=== PATIENT | female | born 1945 | race American Indian/Alaskan Native ===

== ENCOUNTER 2021-03-07 09:18 | Emergency (ER) | payer OTHER, BC ==
--- NOTE | 2021-03-07 10:33 | EDM.PDOC ---
ED HPI GENERAL MEDICAL PROBLEM - General Chief Complaint: Lower Extremity Injury/Pain Stated Complaint: PAIN IN L LEG Time Seen by Provider: 03/07/21 10:15 Source of Information: Reports: Patient, Old Records, RN History Limitations: Reports: No Limitations - History of Present Illness INITIAL COMMENTS - FREE TEXT/NARRATIVE: 75 yo female presents with intermittent pain to the back of her L calf today. No SOB or pleuritic pain. Has a pHx of PE. Onset: Today Onset Date: 03/07/21 Duration: Hour(s):, Intermittent Location: Reports: Lower Extremity, Left Quality: Reports: Sharp Severity: Mild Improves with: Reports: None Worsens with: Reports: None Context: Reports: Other (see HPI) Associated Symptoms: Reports: No Other Symptoms Treatments [employer]: Reports: Other (see below) (none) - Related Data Allergies Allergy/AdvReac Type Severity Reaction Status Date / Time No Known Allergies Allergy Verified 03/07/21 09:38 Home Meds: Home Meds *Colitis Med 2 tab PO DAILY 03/07/21 [History] *Verapamil 1 tab PO DAILY 03/07/21 [History] Aspirin [Halfprin] 81 mg PO DAILY 03/07/21 [History] Losartan [Cozaar] 25 mg PO DAILY 03/07/21 [History] Omeprazole 20 mg PO DAILY 03/07/21 [History] Past Medical History HEENT History: Reports: Cataract, Impaired Vision Cardiovascular History: Reports: Heart Murmur, High Cholesterol, Hypertension Respiratory History: Reports: Asthma, PE Gastrointestinal History: Reports: GERD, Irritable Bowel Syndrome, Other (See Below) Other Gastrointestinal History: Colitis Genitourinary History: Reports: Renal Calculus, UTI, Recurrent HIGH RIGGER History: Reports: Ectopic Psychiatric History: Reports: Depression, Emotional Problems Endocrine/Metabolic History: Reports: Obesity/BMI 30+ Hematologic History: Reports: Anticoagulation Therapy Dermatologic History: Reports: Eczema - Infectious Disease History Infectious Disease History: Reports: Helicobacter Pylori, Measles, Mumps - Past Surgical History HEENT Surgical History: Reports: Cataract Surgery GI Surgical History: Reports: Appendectomy Female Surgical History: Reports: Oophorectomy Musculoskeletal Surgical History: Reports: Shoulder Surgery, Other (See Below) Other Musculoskeletal Surgeries/Procedures:: foot Social & Family History - Tobacco Use Tobacco Use Status *Q: Never Tobacco User - Caffeine Use Caffeine Use: Reports: Tea - Recreational Drug Use Recreational Drug Use: No Review of Systems - Review of Systems Review Of Systems: See Below Constitutional: Reports: No Symptoms Respiratory: Denies: Shortness of Breath, Pleuritic Chest Pain, Hemoptysis Musculoskeletal: Reports: Leg Pain (L calf) Skin: Reports: No Symptoms Neurological: Reports: No Symptoms ED EXAM, GENERAL - Physical Exam Exam: See Below Exam Limited By: No Limitations General Appearance: Alert, WD/WN, No Apparent Distress Eye Exam: Bilateral Eye: Normal Inspection Ears: Normal External Exam, Normal Canal, Hearing Grossly Normal Ear Exam: Bilateral Ear: Auricle Normal, Canal Normal Nose: Normal Inspection, No Blood Throat/Mouth: Normal Inspection, Normal Lips, Normal Oropharynx, Normal Voice, No Airway Compromise Head: Atraumatic, Normocephalic Neck: Normal Inspection Respiratory/Chest: No Respiratory Distress, Lungs Clear, Normal Breath Sounds, No Accessory Muscle Use. No: Respiratory Distress Cardiovascular: Regular Rate, Rhythm, No Edema Back Exam: Normal Inspection Extremities: Normal Inspection, Normal Range of Motion, Non-Tender, No Pedal Edema. No: Pedal Edema, Sergio's Sign, Limited Range of Motion, Increased Warmth Neurological: Alert, Oriented, CN II-XII Intact, Normal Cognition, No Motor/Sensory Deficits Psychiatric: Normal Affect, Normal Mood Skin Exam: Warm, Dry, Intact, Normal Color, No Rash Course - Vital Signs Last Recorded V/S: Last Vital Signs Temp 36.6 C 03/07/21 09:54 Pulse 69 03/07/21 09:54 Resp 19 03/07/21 09:54 BP 122/55 L 03/07/21 09:54 Pulse Ox 98 03/07/21 09:54 - Orders/Labs/Meds Labs: Laboratory Tests 03/07/21 Range/Units 09:45 D-Dimer, Quantitative 899.25 H (0.0-500.0) ng/mL Departure - Departure Time of Disposition: 10:31 Disposition: Home, Self-Care 01 Condition: Good Clinical Impression: Muscle strain, lower leg Qualifiers: Encounter type: initial encounter Laterality: left Qualified Code(s): S86.912A - Strain of unspecified muscle(s) and tendon(s) at lower leg level, left leg, initial encounter - Discharge Information *PRESCRIPTION DRUG MONITORING PROGRAM REVIEWED*: Not Applicable *COPY OF PRESCRIPTION DRUG MONITORING REPORT IN PATIENT NADYA: Not Applicable Instructions: Muscle Strain, [id number] Referrals: PCP,None [Primary Care Provider] - Additional Instructions: Apply moist heat to area and massage area to reduce pain. Acetaminophen may be used if desired. Recheck as needed. Sepsis Event Note (ED) - Evaluation Sepsis Screening Result: No Definite Risk - Focused Exam Vital Signs: Vital Signs Temp Pulse Resp BP Pulse Ox 03/07/21 09:54 36.6 C 69 19 122/55 L 98 03/07/21 09:53 36.6 C 69 19 122/55 L 98
== END 2021-03-07 10:53 | disposition home or self-care (01) ==
LOC: JP.ED 09:18
DX: S86.912A Strain of unspecified muscle(s) and tendon(s) at lower leg level, left leg, initial encounter (principal); K21.9 Gastro-esophageal reflux disease without esophagitis; E66.9 Obesity, unspecified; Z68.31 Body mass index [BMI] 31.0-31.9, adult; Z79.82 Long term (current) use of aspirin; Z79.899 Other long term (current) drug therapy; X58.XXXA Exposure to other specified factors, initial encounter
CPT/HCPCS: 36415; 85379; 99283

== ENCOUNTER 2023-08-26 06:47 | Emergency (ER) | payer BC, MEDICARE ==
[2023-08-26 07:57] LABS: BASOPHILS ABSOLUTE AUTO 0.05 K/uL (0.00-0.10); BASOPHILS PERCENT AUTO 0.9 % (0.1-1.3); EOSINOPHILS ABSOLUTE AUTO 0.08 K/uL (0.00-0.40); EOSINOPHILS PERCENT AUTO 1.4 % (0.0-5.4); HEMATOCRIT 37.8 % (34.3-46.0); HEMOGLOBIN 12.7 g/dL (11.2-15.5); IMMATURE GRAN PERCENT AUTO 0.4 % (0.0-0.7); LYMPHOCYTES ABSOLUTE AUTO 0.69 K/uL (0.8-3.3); LYMPHOCYTES PERCENT AUTO 12.4 % (11.4-47.7); MEAN CORPUSCULAR HEMOGLOBIN 30.9 pg (31.6-35.5); MEAN CORPUSCULAR HGB CONC 33.6 g/dL (31.6-35.5); MONOCYTES ABSOLUTE AUTO 0.42 K/uL (0.20-0.90); MONOCYTES PERCENT AUTO 7.5 % (3.3-12.6); NEUTROPHILS ABSOLUTE AUTO 4.31 K/uL (1.0-7.6); NEUTROPHILS PERCENT AUTO 77.4 % (40.0-78.1); PLATELET COUNT,PLT 232 K/uL (130-375); RED BLOOD CELL COUNT 4.11 M/uL (3.77-5.24); WHITE BLOOD CELL COUNT,WBC 5.6 K/uL (3.2-11.0)
[2023-08-26 07:59] LABS: IMMATURE GRAN ABSOLUTE AUTO 0.02 K/uL (0.00-0.23)
[2023-08-26] MEDS: Benzonatate 100 MG Cap PO ONE (08:17)
[2023-08-26 08:18] LABS: PROTHROMBIN TIME 9.8 sec (9.2-10.6); PTT,PARTIAL THROMBOPLSTIN TIME 23.7 sec (21.8-27.3)
[2023-08-26 08:27] LABS: ANION GAP 6.2 mmol/L (5.0-14.0); BLOOD UREA NITROGEN,BUN 21 mg/dL (7-18); CALCIUM 8.5 mg/dL (8.5-10.1); CARBON DIOXIDE,CO2 30 mmol/L (21-32); CHLORIDE,CL 107 mmol/L (100-108); CREATININE 0.6 mg/dL (0.6-1.0); EST CRCL DRUG DOSING (CG) 60.13 mL/min; ESTIMATED GFR 91 mL/min (>60); GLUCOSE RANDOM 94 mg/dL (74-106); MAGNESIUM 1.9 mg/dL (1.8-2.4); PHOSPHORUS 2.8 mg/dL (2.5-4.9); POTASSIUM,K 4.1 mmol/L (3.6-5.2); PRO B-TYPE NATRIUR PEPT,BNPPRO 176 pg/mL (5-450); SODIUM,NA 143 mmol/L (140-148); TROPONIN I HIGH SENSITIVITY 6.5 pg/mL (<=60.3)
[2023-08-26 08:32] LABS: C-REACTIVE PROTEIN < 0.50 mg/dL (<0.50)
[2023-08-26] MEDS: Acetaminophen 500 MG Tab PO ONE (09:27)
[2023-08-26 09:35] LABS: APPEARANCE,URINE CLEAR (CLEAR); BILIRUBIN,URINE NEGATIVE (NEGATIVE); COLOR,URINE YELLOW (YELLOW); GLUCOSE,URINE NEGATIVE (NEGATIVE); KETONES,URINE NEGATIVE (NEGATIVE); LEUKOCYTE ESTERASE,URINE TRACE (NEGATIVE); NITRITE,URINE NEGATIVE (NEGATIVE); OCCULT BLOOD,URINE MODERATE (NEGATIVE); PH,URINE 6.5 (5.0-8.0); PROTEIN,URINE NEGATIVE (NEGATIVE); UROBILINOGEN,URINE 0.2 EU/dL (0.2-1.0)
[2023-08-26 09:42] LABS: EPITHELIAL CELLS,URINE FEW; WBC,URINE 0-5 (0-5)
[2023-08-26 09:43] LABS: AMORPHOUS SEDIMENT,URINE FEW; BACTERIA,URINE FEW; MUCUS,URINE MANY
== END 2023-08-26 11:00 | disposition home or self-care (01) ==
LOC: JP.ED 06:47
DX: S22.41XA Multiple fractures of ribs, right side, initial encounter for closed fracture (principal); J20.9 Acute bronchitis, unspecified; E78.00 Pure hypercholesterolemia, unspecified; I10 Essential (primary) hypertension; E66.9 Obesity, unspecified; Z79.82 Long term (current) use of aspirin; Z79.899 Other long term (current) drug therapy; Z79.01 Long term (current) use of anticoagulants; Z86.19 Personal history of other infectious and parasitic diseases; Z86.16 Personal history of COVID-19; Z87.891 Personal history of nicotine dependence; Z68.32 Body mass index [BMI] 32.0-32.9, adult; W19.XXXA Unspecified fall, initial encounter
CPT/HCPCS: 36415; 71046; 71110; 80048; 81001; 83605; 83735; 83880; 84100; 84145; 84484; 85025; 85610; 85730; 86140; 93005; 99285; A9270; 93010; 99284